=== PATIENT | female | born 1965 | race Caucasian/White ===

== ENCOUNTER 2019-10-14 09:02 | Outpatient (CLI) | payer OTHER, SELFPAY ==
--- NOTE | ~2019-10-14 | CT_ITS ---
EXAMINATION: CT abdomen pelvis wo/w con EXAM DATE: 10/14/2019 09:43 INDICATION: Microscopic hematuria. TECHNIQUE: Spiral CT of the abdomen and pelvis was performed without contrast. The patient was then injected with small bolus intravenous Omnipaque 350, followed by delay of approximately 10 minutes to allow collecting system to opacify. A post contrast scan abdomen and pelvis was performed during inj ection of remaining contrast. A total of 130 cc intravenous contrast was administered. The dose-teja th product (DLP) for this examination was 1654.82 mGy-cm. The exposure was tailored according to pat ient size (auto mA exposure control), and iterative reconstruction (ASIR) was used as additional dose reduction technique. There is no prior study for comparison. FINDINGS: There is no hydronephrosis or nephrolithiasis. Several small liver cysts. The kidneys enh ance symmetrically. There are no suspicious renal lesions. The calyces and opacified portions of ur eters are unremarkable, without filling defects or focal suspicious strictures. The bladder is unrem arkable. The uterus is unremarkable. The largest liver cyst is in the left liver lobe lateral segment, measures 4.5 cm. The spleen, pancr eas, and adrenal glands are unremarkable. Gallbladder is unremarkable. No biliary obstruction. The re is no retroperitoneal or pelvic lymphadenopathy. There is mild scattered arteriosclerotic diseas e. The appendix is normal. The stomach and small bowel are unremarkable. There is mild sigmoid colonic diverticulosis. There is no adjacent inflammatory change to suggest diverticulitis. No free intrape ritoneal gas. The heart is normal in size. There are no pericardial or pleural effusions. The tripp g bases are unremarkable. There are no osteoblastic or osteolytic lesions identified. IMPRESSION: 1. Renal, liver cysts. 2. Mild sigmoid diverticulosis. 3. Otherwise unremarkable exam. Reviewed, dictated and finalized at location A. [employer]
== END 2019-10-14 09:03 ==
PROVIDERS: PCP Internal Medicine; Visit Provider Nurse Practitioner Adult Health
DX: R31.29 Other microscopic hematuria (principal); N28.1 Cyst of kidney, acquired; K57.30 Diverticulosis of large intestine without perforation or abscess without bleeding
CPT/HCPCS: 74178; Q9967

== ENCOUNTER 2024-03-13 11:34 | Emergency (ER) | payer OTHER, SELFPAY ==
[2024-03-13 11:44] VITALS: BP 111/70; PULSE 87; RESP 18; TEMP 36.6; O2SAT 96
--- NOTE | 2024-03-13 11:48 | ED.URI ---
HPI - URI/Sore Throat General Chief Complaint: Upper Respiratory Infection Stated Complaint: sinus irritation Time Seen by Provider: 03/13/24 11:48 Source: patient and RN notes reviewed Mode of arrival: ambulatory Limitations: no limitations History of Present Illness HPI Narrative: 58-year-old female presents with concern for several week history of sinus congestion, pressure, drainage, cough. Reports a ?funny feeling? in her chest to ice chest pain or shortness of breath. She is taking gqai-efo-tvrwlip cold medicines without relief. She took 1 day of the Z-Ranjit on February 24 but I gave her diarrhea so she has got take. Her primary care doctor prescribed as phone for sinus MD elicited complaint: cough and sinus pain Related Data Allergies Allergy/AdvReac Type Severity Reaction Status Date / Time No Known Allergies Allergy Verified 03/13/24 11:43 Review of Systems Review of Systems: CONSTITUTIONAL: Denies malaise, chills, sweats, or fever. EYES: Denies visual changes, redness, or discharge. ENT: Reports rhinorrhea, congestion, sinus pain CARDIOVASCULAR: Denies chest pain, palpitations, or edema. RESPIRATORY: Reports cough. Denies dyspnea. GASTROINTESTINAL: Denies abdominal pain, nausea, vomiting, diarrhea SKIN: Denies rash or itching. MUSCULOSKELETAL: Denies myalgia. NEUROLOGIC: Denies headache. All systems reviewed & are unremarkable except as noted in HPI and below PMFSH Comments At time of signature, agree with nursing past medical, surgical, social and family history. There is no relevant family history pertinent to the presenting complaint Exam Narrative: GENERAL: Well-appearing, well-nourished, and in no acute distress. HEAD: Normocephalic EYES: PERRLA, conjunctivae clear ENT: Nares clear, turbinates edematous and erythematous. Mucous membranes moist. TM pearly allan with dull light reflex bilaterally; no tragal tenderness. Oropharynx not erythematous without lesions. Tonsils not enlarged and without exudate, no drooling, no hoarseness, no trismus, uvula midline. NECK: Supple. No lymphadenopathy CHEST: Clear to auscultation, breath sounds equal. No wheezing, rhonchi, rales, or stridor. No respiratory distress, speaks in full sentences. HEART: Regular rate and rhythm. No murmur heard. SKIN: Warm, dry, no rash. NEURO: Alert and oriented x3. PSYCH: Normal mood and affect Course Course Emergency Course: Patient is aware of diagnosis, understands and agrees to treatment plan. Anticipatory guidance given. Patient agrees to follow-up as directed and is aware of reasons to seek care at the emergency department. Portions of this record may have been created with voice recognition software Level of Care: Express Care Visit Vital Signs Vital signs: Vital Signs Temperature 97.8 F 03/13/24 11:44 Pulse Rate 87 03/13/24 11:44 Respiratory Rate 18 03/13/24 11:44 Blood Pressure 111/70 03/13/24 11:44 Pulse Oximetry 96 03/13/24 11:44 Oxygen Delivery Room Air 03/13/24 11:44 Temperature 97.8 F 03/13/24 11:44 Pulse Rate 87 03/13/24 11:44 Respiratory Rate 18 03/13/24 11:44 Blood Pressure 111/70 03/13/24 11:44 Pulse Oximetry 96 03/13/24 11:44 Oxygen Delivery Room Air 03/13/24 11:44 Reviewed. MDM - URI/Sore Throat MDM Narrative Medical decision making narrative: Differential diagnosis considered: Judd virus, strep pharyngitis, allergic rhinitis, upper respiratory tract infection, sinusitis, rhinosinusitis, nasopharyngitis. viral pharyngitis, otitis media, otitis externa, pneumonia, bronchitis, viral cough syndrome, viral syndrome, and influenza. Exam findings show no acute concerns or changes; patient is non-toxic appearing and is in no distress. Patient is appropriate for outpatient treatment and follow-up. Lab Data Attestation: I reviewed the patient's lab results. Critical Care Time Critical Care Time Critical Care Time: No Discharge Plan Discharge Clinical Imp
== END 2024-03-13 12:00 | disposition home or self-care (01) ==
PROVIDERS: Emergency Provider Nurse Practitioner
DX: J32.9 Chronic sinusitis, unspecified (principal); J40 Bronchitis, not specified as acute or chronic
CPT/HCPCS: 99213; G0463